=== PATIENT | male | born 1990 | race Caucasian/White ===

== ENCOUNTER 2016-12-16 18:35 | Emergency (ER) | payer OTHER | END 2016-12-16 21:27 | disposition home or self-care (01) | LOC: ER1 18:35 | DX: M54.41 Lumbago with sciatica, right side (principal); I10 Essential (primary) hypertension; Z88.2 Allergy status to sulfonamides | CPT/HCPCS: 96372; 99283 ==

== ENCOUNTER 2017-03-08 16:56 | Emergency (ER) | payer OTHER ==
[2017-03-08 17:30] LABS: HEMOGLOBIN 16.2 gm/dl (14.0-17.5); RED BLOOD COUNT 5.39 M/UL (4.20-5.50); WHITE BLOOD COUNT 7.4 K/UL (4.5-11.0)
[2017-03-08 18:01] LABS: BUN/CREATININE RATIO 15 (0-10)
== END 2017-03-09 09:25 | disposition home or self-care (01) ==
LOC: ER1 16:56
PROVIDERS: Emergency Medicine
DX: R07.89 Other chest pain (principal); R00.2 Palpitations; I10 Essential (primary) hypertension; Z88.2 Allergy status to sulfonamides; Z88.8 Allergy status to other drugs, medicaments and biological substances
CPT/HCPCS: 36415; 71010; 80053; 82550; 82553; 83874; 84443; 84484; 85025; 85379; 93005; 99285

== ENCOUNTER → 2021-03-21 | Outpatient (CLI) | payer BC | LOC: EXRD 10:55 | DX: N20.0 Calculus of kidney (principal) | CPT/HCPCS: 74018 ==